=== PATIENT | male | born 1990 | race Caucasian/White ===

== ENCOUNTER 2017-09-06 11:05 | Emergency (ER) | payer BC, OTHER ==
[2017-09-06 11:37] VITALS: BP 120/67
[2017-09-06] MEDS ORDERED: cefTRIAXone VIAL(*) 250 MG VIAL IM ONE (12:11)
[2017-09-06] MEDS ORDERED: Azithromycin TAB* 250 MG PO ONE (12:12)
--- NOTE | 2017-09-06 12:18 | UC ---
Complaint Male HPI - HPI Summary HPI Summary: 27 yo male states a girl he recently slept with told him she had chlamydia he is asymptomatic denies hx of STDs - History of Current Complaint Chief Complaint: UCGU Stated Complaint: personal Time Seen by Provider: 09/06/17 12:13 Hx Obtained From: Patient Onset/Duration: Other - NA Severity Currently: None Pain Intensity: 0 Pain Scale Used: 0-10 Numeric Location: Other - NA Prior STD Hx: denies - Allergies/Home Medications Allergies/Adverse Reactions: Allergies Allergy/AdvReac Type Severity Reaction Status Date / Time seasonal dust Allergy Congestion Uncoded 09/06/17 11:28 Home Medications: Home Medications NK [No Home Medications Reported] 09/06/17 [History Confirmed 09/06/17] PMH/Surg Hx/FS Hx/Imm Hx Previously Healthy: Yes - Surgical History Surgical History: Yes Surgery Procedure, Year, and Place: right chest tube 2012 s/p spontaneous pneumothorax. left chest tubes x 3 s/p spontaneous pneumothorax - Family History Known Family History: Positive: Hypertension Negative: Diabetes - Social History Alcohol Use: None Substance Use Type: Excessive Caffeine Substance Use Comment - Amount & Last Used: 1 liter soda daily Smoking Status (MU): Light Every Day Tobacco Smoker Type: Cigarettes Amount Used/How Often: LESS THEN 1/2 PPD Have You Smoked in the Last Year: Yes - Immunization History Most Recent Influenza Vaccination: no Review of Systems Constitutional: Negative Skin: Negative Eyes: Negative ENT: Negative Respiratory: Negative Cardiovascular: Negative Gastrointestinal: Negative Genitourinary: Negative Motor: Negative Neurovascular: Negative Musculoskeletal: Negative Neurological: Negative Psychological: Negative Is Patient Immunocompromised?: No All Other Systems Reviewed And Are Negative: Yes Physical Exam Triage Information Reviewed: Yes Appearance: Well-Appearing, No Pain Distress, Well-Nourished Vital Signs: Initial Vital Signs Temp 99.2 F 09/06/17 11:29 Pulse 88 09/06/17 11:29 Resp 18 09/06/17 11:29 BP 120/67 09/06/17 11:29 Pulse Ox 99 09/06/17 11:29 Vital Signs Reviewed: Yes Eyes: Positive: Conjunctiva Clear ENT: Negative: Hearing grossly normal, Nasal congestion, Nasal drainage, Tonsillar exudate, Trismus Neck: Positive: Supple, Nontender Respiratory: Positive: Lungs clear, Normal breath sounds, No respiratory distress Cardiovascular: Positive: RRR Abdomen Description: Positive: Nontender, No Organomegaly. Negative: Bruit, CVA Tenderness (R), CVA Tenderness (L) Male Genital Exam: Positive: Normal Genitalia Musculoskeletal: Positive: ROM Intact, No Edema Neurological: Positive: Alert Psychological Exam: Normal Skin Exam: Normal Complaint Male Course/Dx - Differential Dx/Diagnosis Provider Diagnoses: exposure to chlamydia Discharge - Sign-Out/Discharge Documenting (check all that apply): Discharge/Admit/Transfer - Discharge Plan Condition: Stable Disposition: HOME Patient Education Materials: Sexually Transmitted Diseases (ED) Referrals: [facility] CUMMINGS,Timi Lee [Primary Care Provider] - If Needed Additional Instructions: you were treated for chlamydia here tests pending - Billing Disposition and Condition Condition: STABLE Disposition: HOME
== END 2017-09-06 12:47 | disposition home or self-care (01) ==
LOC: UCCORT 11:05
DX: Z20.2 Contact with and (suspected) exposure to infections with a predominantly sexual mode of transmission (principal); F17.210 Nicotine dependence, cigarettes, uncomplicated
CPT/HCPCS: 87491; 87591; 96372; 99212; A9270-GY; G0463; J0696

== ENCOUNTER 2017-10-07 14:57 | Emergency (ER) | payer OTHER ==
[2017-10-07 15:23] VITALS: BP 131/79
--- NOTE | 2017-10-07 15:52 | UC ---
Dental HPI - HPI Summary HPI Summary: Pt c/o chronic tooth pain right lower jaw. Pt has hx of poor dentition and is waiting to see dentist until insurance "kicks in". - History of Current Complaint Hx Obtained From: Patient Onset/Duration: Gradual Onset, Lasting Weeks, Still Present, Worse Since - onset Severity: Moderate Pain Intensity: 6 Aggravating Factor(s): Heat, Cold, Chewing Alleviating Factor(s): Nothing Related History: Previous Dental Care on Same Tooth <Sandra Tolbert NP - Last Filed: 10/07/17 16:01> <Jose Calixto - Last Filed: 10/07/17 18:28> - History of Current Complaint Chief Complaint: UCDentalProblem Stated Complaint: PERSONAL - Allergies/Home Medications Allergies/Adverse Reactions: Allergies Allergy/AdvReac Type Severity Reaction Status Date / Time seasonal dust Allergy Congestion Uncoded 10/07/17 15:23 Home Medications: Home Medications Acetaminophen TAB* [Tylenol TAB*] 650 mg PO Q4H PRN 10/07/17 [History Confirmed 10/07/17] Ibuprofen TAB* [Motrin TAB* 800 MG] 800 mg PO ONCE 10/07/17 [History Confirmed 10/07/17] PMH/Surg Hx/FS Hx/Imm Hx Previously Healthy: Yes - Surgical History Surgical History: Yes Surgery Procedure, Year, and Place: right chest tube 2012 s/p spontaneous pneumothorax. left chest tubes x 3 s/p spontaneous pneumothorax - Family History Known Family History: Positive: Hypertension Negative: Diabetes - Social History Occupation: Employed Full-time Lives: With Family Alcohol Use: None Substance Use Type: Excessive Caffeine Substance Use Comment - Amount & Last Used: 1 liter soda daily Smoking Status (MU): Light Every Day Tobacco Smoker Type: Cigarettes Amount Used/How Often: LESS THEN 1/2 PPD Have You Smoked in the Last Year: Yes - Immunization History Most Recent Influenza Vaccination: no <Sandra Tolbert NP - Last Filed: 10/07/17 16:01> Review of Systems Constitutional: Negative Skin: Negative Eyes: Negative ENT: Dental Pain Respiratory: Negative Cardiovascular: Negative Gastrointestinal: Negative Genitourinary: Negative Motor: Negative Neurovascular: Negative Musculoskeletal: Negative Neurological: Negative Psychological: Negative Is Patient Immunocompromised?: No All Other Systems Reviewed And Are Negative: Yes <Sandra Tolbert NP Last Filed: 10/07/17 16:01> Physical Exam Triage Information Reviewed: Yes Appearance: Well-Appearing Vital Signs: Initial Vital Signs Temp 98.8 F 10/07/17 15:17 Pulse 83 10/07/17 15:17 Resp 18 10/07/17 15:17 BP 131/79 10/07/17 15:17 Pulse Ox 100 10/07/17 15:17 Vital Signs Reviewed: Yes Eye Exam: Normal ENT Exam: Normal ENT: Positive: Hearing grossly normal Dental Exam: Other Dental: Positive: Gross Decay/Caries @, Dental Fracture @ - right wisdom tooth Neck exam: Normal Respiratory: Positive: No respiratory distress Musculoskeletal Exam: Normal Neurological Exam: Normal Psychological Exam: Normal Skin Exam: Normal <Sandra Tolbert NP - Last Filed: 10/07/17 16:01> Vital Signs: Initial Vital Signs Temp 98.8 F 10/07/17 15:17 Pulse 83 10/07/17 15:17 Resp 18 10/07/17 15:17 BP 131/79 10/07/17 15:17 Pulse Ox 100 10/07/17 15:17 <Jose Calixto - Last Filed: 10/07/17 18:28> Dental Complaint Course/Dx - Differential Dx/Diagnosis Differential Diagnosis/Dx: Dental Abscess, Fractured Tooth Provider Diagnoses: fractured tooth. dentla abscess <Sandra Tolbert NP - Last Filed: 10/07/17 16:01> Discharge - Sign-Out/Discharge Documenting (check all that apply): Discharge/Admit/Transfer - Billing Disposition and Condition Condition: STABLE Disposition: Home <Sandra Tolbert NP - Last Filed: 10/07/17 16:01> - Billing Disposition and Condition Condition: STABLE Disposition: Home <Jose Calixto - Last Filed: 10/07/17 18:28> - Discharge Plan Condition: Stable Disposition: HOME Prescriptions: Amoxicillin PO (*) [Amoxicillin 875 MG (*)] 875 mg PO Q12H #20 tab Lidocaine 2% VISCOUS* [Xylocaine 2% Viscous*] 15 ml SWISH SPIT Q4H PRN #1 btl PRN Reason: Pain predniSONE TAB* [Deltasone 20 MG TAB*] 20 mg PO DAILY #4 tab Patient Education Materials: Toothache (ED) Referrals: [facility] AGRICULT[facility] CHEMIST,Timi Lee [Primary Care Provider] - Additional Instructions: Per institutional requirements, I have reviewed the chart, however, I was not consulted specifically or made aware of this patient by the above midlevel provider. I did not personally evaluate, interact with , or disposition this patient.
== END 2017-10-07 16:00 | disposition home or self-care (01) ==
LOC: UCCORT 14:57
DX: S02.5XXA Fracture of tooth (traumatic), initial encounter for closed fracture (principal); K04.7 Periapical abscess without sinus
CPT/HCPCS: 99212; G0463

== ENCOUNTER 2019-03-23 19:08 | Emergency (ER) | payer OTHER ==
[2019-03-23 19:43] VITALS: BP 141/67
[2019-03-23] MEDS ORDERED: Lidocaine 1% MPF ** 5 ML VIAL INJ ONE (19:56)
[2019-03-23] MEDS ORDERED: Tetan/Diph/Pertus SYR(Tdap)* 0.5 ML SYR(BOOSTRIX) use SYR contains LATEX IM ONE (20:02)
--- NOTE | 2019-03-23 20:02 | UC ---
Hand/Wrist HPI - HPI Summary HPI Summary: 29-year-old male comes in with a chief complaint of an injury to the left middle finger. Today work around 1:00 the afternoon he accidentally struck his distal left middle finger with a rubber hammer. He had swelling and bleeding right away. Bleeding stopped with direct pressure. Patient is not up-to-date on his tetanus shot. Movement makes the pain worse. - History Of Current Complaint Chief Complaint: UCGeneralIllness Stated Complaint: WC-LT HAND-MIDDLE FINGER INJURY Time Seen by Provider: 03/23/19 19:49 Pain Intensity: 6 - Allergies/Home Medications Allergies/Adverse Reactions: Allergies Allergy/AdvReac Type Severity Reaction Status Date / Time seasonal dust Allergy Congestion Uncoded 03/23/19 19:38 PMH/Surg Hx/FS Hx/Imm Hx Previously Healthy: Yes - Surgical History Surgical History: Yes Surgery Procedure, Year, and Place: right chest tube 2012 s/p spontaneous pneumothorax. left chest tubes x 3 s/p spontaneous pneumothorax - Family History Known Family History: Positive: Hypertension Negative: Diabetes - Social History Alcohol Use: Rare Substance Use Type: None Substance Use Comment - Amount & Last Used: 1 liter soda daily Smoking Status (MU): Light Every Day Tobacco Smoker Type: Cigarettes Amount Used/How Often: LESS THEN 1/2 PPD Have You Smoked in the Last Year: Yes - Immunization History Most Recent Influenza Vaccination: no Most Recent Tetanus Shot: unsure Review of Systems All Other Systems Reviewed And Are Negative: Yes Constitutional: Positive: Negative Skin: Positive: Other - SEE HPI Eyes: Positive: Negative ENT: Positive: Negative Respiratory: Positive: Negative Cardiovascular: Positive: Negative Gastrointestinal: Positive: Negative Motor: Positive: Negative Neurovascular: Positive: Negative Musculoskeletal: Positive: Other: - SEE HPI Neurological: Positive: Negative Psychological: Positive: Negative Is Patient Immunocompromised?: No Physical Exam Triage Information Reviewed: Yes Appearance: Well-Appearing, No Pain Distress, Well-Nourished Vital Signs: Initial Vital Signs Temp 99.1 F 03/23/19 19:39 Pulse 95 03/23/19 19:39 Resp 14 03/23/19 19:39 BP 141/67 03/23/19 19:39 Pulse Ox 99 03/23/19 19:39 Vital Signs Reviewed: Yes Eye Exam: Normal Eyes: Positive: Conjunctiva Clear Neck: Positive: Supple Respiratory: Positive: No respiratory distress Musculoskeletal: Positive: Other: - Distal left middle finger has 2 partial- thickness lacerations that do not require suturing. One is 5 mm the other 8 mm. There is a flap laceration 1 cm in length is full thickness. Tip of the finger is also swollen and there is a blood blister that's a centimeter and a half in diameter on the pad of the finger. Fingers full range of motion normal sensation normal capillary refill. Neurological: Positive: Alert Psychological: Positive: Age Appropriate Behavior Skin: Positive: Other - Distal left middle finger has 2 partial-thickness lacerations that do not require suturing. One is 5 mm the other 8 mm. There is a flap laceration 1 cm in length is full thickness. Tip of the finger is also swollen and there is a blood blister that's a centimeter and a half in diameter on the pad of the finger. Procedures - Laceration/Wound Repair 1 Location: upper extremity Description: Irregular - left middle finger, L-shaped 1 cm in length. Anesthesia: Local, 1.0%, Lido Betadine Prep?: No Irrigated w/ Saline (ccs): 10 - yes Laceration/Wound Explored: clean Closure: Single Layer Debridement: minimal Suture Type: Prolene - 6-0 Number of Sutures: 4 Layer Closure?: No Sterile Dressing Applied?: Yes - by nursing Hand/Wrist Course/Dx - Course Course Of Treatment: Patient was given a TD Here in clinic. I discussed the x-rays with the patient I did not see a fracture radiologist reading is pending. And have the patient on Keflex 500 mg by mouth 3 times a day for 7 days. 4 sutures were placed and they'll need to come out in 8-10 days. Follow-up with orthopedist if there is a fracture otherwise follow-up with primary care doctor or here for suture removal. Reevaluate sooner if worse or any questions or concerns. - Differential Dx/Diagnosis Provider Diagnosis: Crushing injury of left middle finger, Laceration of left middle finger Discharge ED - Sign-Out/Discharge Documenting (check all that apply): Patient Departure All imaging exams completed and their final reports reviewed: No - Discharge Plan Condition: Stable Disposition: HOME Prescriptions: Cephalexin CAP* [Keflex CAP*] 500 mg PO TID #19 cap Patient Education Materials: Finger Laceration (ED), Crush Injury (ED) Referrals: [facility] [place] [facility]YSICIAN REFERRAL [Outside] Additional Instructions: FOLLOW UP WITH YOUR DOCTOR IF NOT COMPLETELY IMPROVED. You were given the T tap immunization tonight which includes tetanus diphtheria and pertussis. Sutures out in 8-10 days. Final radiologist reading of the x-ray is pending. If a fracture is seen we will contact you and you will need to follow-up with orthopedics. GET REEVALUATED SOONER IF NOT IMPROVING OR WORSE; SIGNS OF INFECTION OR ANY QUESTIONS OR CONCERNS. - Billing Disposition and Condition Condition: STABLE Disposition: Home
[2019-03-23] MEDS ORDERED: Cephalexin CAP* 500 MG PO ONE ×2 (20:27→20:28)
--- NOTE | 2019-03-24 11:39 | ED ---
Progress - Progress Note Progress Note: final xray read reviewed: No evidence for fracture Course/Dx - Diagnoses Provider Diagnoses: Crushing injury of left middle finger, Laceration of left middle finger Discharge ED - Sign-Out/Discharge Documenting (check all that apply): Patient Departure All imaging exams completed and their final reports reviewed: Yes - Discharge Plan Condition: Stable Disposition: HOME Prescriptions: Cephalexin CAP* [Keflex CAP*] 500 mg PO TID #19 cap Patient Education Materials: Finger Laceration (ED), Crush Injury (ED) [place] [facility] [place]] Additional Instructions: FOLLOW UP WITH YOUR DOCTOR IF NOT COMPLETELY IMPROVED. You were given the T tap immunization tonight which includes tetanus diphtheria and pertussis. Sutures out in 8-10 days. Final radiologist reading of the x-ray is pending. If a fracture is seen we will contact you and you will need to follow-up with orthopedics. GET REEVALUATED SOONER IF NOT IMPROVING OR WORSE; SIGNS OF INFECTION OR ANY QUESTIONS OR CONCERNS. - Billing Disposition and Condition Condition: STABLE Disposition: Home
== END 2019-03-23 20:48 | disposition home or self-care (01) ==
LOC: UCCORT 19:08
DX: S67.193A Crushing injury of left middle finger, initial encounter (principal); S61.213A Laceration without foreign body of left middle finger without damage to nail, initial encounter; F17.210 Nicotine dependence, cigarettes, uncomplicated; Z91.09 Other allergy status, other than to drugs and biological substances; Z23 Encounter for immunization; W22.8XXA Striking against or struck by other objects, initial encounter; Y92.9 Unspecified place or not applicable; Y99.0 Civilian activity done for income or pay
CPT/HCPCS: 12001; 90471; 90715; 99212; A9270-GY; G0463

== ENCOUNTER 2019-04-01 12:26 | Emergency (ER) | payer OTHER ==
[2019-04-01 13:00] VITALS: BP 128/70
--- NOTE | 2019-04-01 13:02 | UC ---
HPI Wound/Suture Re-check - HPI Summary HPI Summary: Pt presents with suture removal in left middle distal finger. Pt had sutures placed here on 03/23/19. Pt states that he thinks all of the sutures came out prior to arrival. - History Of Current Complaint Chief Complaint: MELLISSAkin Stated Complaint: STITCHES REMOVAL Time Seen by Provider: 04/01/19 12:56 Hx Obtained From: Patient Onset/Duration: Sudden Onset, Still Present Severity: Mild Pain Intensity: 0 - Allergies/Home Medications Allergies/Adverse Reactions: Allergies Allergy/AdvReac Type Severity Reaction Status Date / Time seasonal dust Allergy Congestion Uncoded 04/01/19 13:00 Home Medications: Home Medications NK [No Home Medications Reported] 04/01/19 [History Confirmed 04/01/19] PMH/Surg Hx/FS Hx/Imm Hx Previously Healthy: Yes - Surgical History Surgical History: Yes Surgery Procedure, Year, and Place: right chest tube 2012 s/p spontaneous pneumothorax. left chest tubes x 3 s/p spontaneous pneumothorax - Family History Known Family History: Positive: Hypertension Negative: Diabetes - Social History Occupation: Employed Full-time Lives: With Family Alcohol Use: Rare Substance Use Type: None Substance Use Comment - Amount & Last Used: 1 liter soda daily Smoking Status (MU): Light Every Day Tobacco Smoker Type: Cigarettes Amount Used/How Often: LESS THEN 1/2 PPD Have You Smoked in the Last Year: Yes - Immunization History Most Recent Influenza Vaccination: no Most Recent Tetanus Shot: unsure Review of Systems All Other Systems Reviewed And Are Negative: Yes Constitutional: Positive: Negative Skin: Positive: Other - wound is closed, no sutures left intact Eyes: Positive: Negative ENT: Positive: Negative Respiratory: Positive: Negative Cardiovascular: Positive: Negative Gastrointestinal: Positive: Negative Genitourinary: Positive: Negative Motor: Positive: Negative Neurovascular: Positive: Negative Musculoskeletal: Positive: Negative Neurological: Positive: Negative Psychological: Positive: Negative Is Patient Immunocompromised?: No Physical Exam Triage Information Reviewed: Yes Appearance: Well-Appearing Vital Signs: Initial Vital Signs Temp 97.3 F 04/01/19 12:55 Pulse 89 04/01/19 12:55 Resp 16 04/01/19 12:55 BP 128/70 04/01/19 12:55 Pulse Ox 99 04/01/19 12:55 Vital Signs Reviewed: Yes Eye Exam: Normal ENT Exam: Normal ENT: Positive: Hearing grossly normal Dental Exam: Normal Neck exam: Normal Respiratory: Positive: No respiratory distress Musculoskeletal Exam: Normal Musculoskeletal: Positive: Strength Intact, ROM Intact Neurological Exam: Normal Psychological Exam: Normal Skin Exam: Other - edges well approximated, 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 the area aroun the wound is non tender but seems stiff and pt report sthat he has tried to drain firm area by sticking a needle in area but no discharge. Course/Dx - Course Course Of Treatment: sutures were removed prior to arrival. NO signs or symptoms of infection. Pt instructed to continue to promote wound healing and to monitor for any signs of infection. - Differential Dx - Laceration/Wound Differential Diagnoses: Healing Wound, Suture Removal - Diagnosis Provider Diagnosis: Healing wound Discharge ED - Sign-Out/Discharge Documenting (check all that apply): Patient Departure All imaging exams completed and their final reports reviewed: No Studies - Discharge Plan Condition: Stable Disposition: HOME Patient Education Materials: Wound Healing and Your Diet (ED) Referrals: [facility] [place] [facility] REFERRAL [Outside] - If Needed No Primary Care Phys,NOPCP [Primary Care Provider] - Additional Instructions: Please note that your sutures were removed prior to arrival. Your wound is healing without signs of infection. Please continue to monitor for increased tenderness, erythema, fever, chills, purulent discharge, and swelling. - Billing Disposition and Condition Condition: STABLE Disposition: Home
== END 2019-04-01 13:09 | disposition home or self-care (01) ==
LOC: UCCORT 12:26
DX: S61.203D Unspecified open wound of left middle finger without damage to nail, subsequent encounter (principal); F17.210 Nicotine dependence, cigarettes, uncomplicated; Z91.09 Other allergy status, other than to drugs and biological substances; X58.XXXD Exposure to other specified factors, subsequent encounter
CPT/HCPCS: 99211; G0463